=== PATIENT | female | born 1990 | race Caucasian/White ===

== ENCOUNTER 2018-08-25 18:45 | Inpatient (IN) | payer OTHER ==
[2018-08-25] MEDS ORDERED: OXYTOCIN 20 UNITS in 0.9% NS 20 UNIT/1,000 ML INFUS.BAG IV ONE (19:08)
[2018-08-25] MEDS ORDERED: BENZOCAINE 20% 57 GM BOTTLE TP PRN (19:32)
[2018-08-25] MEDS ORDERED: BISACODYL 10 MG SUPP.RECT RC PRN (19:32)
[2018-08-25] MEDS ORDERED: METHYLERGONOVINE MALEATE 0.2 MG/1 ML AMP IM PRN (19:32)
[2018-08-25] MEDS ORDERED: BENZOCAINE 28 GM HEMORRHOIDAL OINTMENT TP PRN (19:32)
[2018-08-25] MEDS ORDERED: WITCH HAZEL 50% (TUCKS) 40 PAD/JAR PAD TP PRN (19:32)
[2018-08-25 19:35] LABS: BASO % 0.2 % (0-2.0); EOS % 1.2 % (0-4.5); HEMOGLOBIN 12.6 GM/dL (10.7-15.3); LYMPH % 29.9 % (8-40); MCHC 35.1 g/dl (32.0-36.0); MEAN CELL VOLUME 88.4 fl (80-96); MONO % 6.7 % (3.8-10.2); PLATELET COUNT 164 K/MM3 (134-434); RBC 4.07 M/mm3 (3.60-5.2); RDW 14.5 % (11.6-15.6); WHITE BLOOD COUNT 9.5 K/mm3 (4.0-10.0)
[2018-08-25 19:40] LABS: ARTERIAL BLD GAS O2 SATURATION 40.6 % (90-98.9); ARTERIAL BLOOD GAS BASE EXCESS -1.1 meq/l (-2-2); ARTERIAL BLOOD GAS PCO2 57.1 mmHg (35-45); ARTERIAL BLOOD GAS PO2 22.7 mmHg (80-100); ARTERIAL BLOOD GAS pH 7.29 (7.35-7.45)
--- NOTE | 2018-08-25 19:44 | HP ---
Past Medical History - Primary Care Physician PCP:: Paola De La Rosa - Admission Chief Complaint: 28 yrs , 38.1 weeks arrived in active labor. onset LP since 6.00 PM. SROM since 5.00 PM History of Present Illness: care at [address] Wt gain 22 lbs panel 02/12/18 O Pos, rubella immune , hbsag neg, rpr nr, cf screen neg ,Pap Nilm, hpv , gc/ct neg 12/08/17 ora quick neg . 05/19/18 1 hr Gtt 130 , rpr nr, quantiferon neg 08/13/18 : gc/ct neg, GBS neg, Hiv , h/h 12.2/38.3 , Plt 168 . serial sono done by [facility] for growth . NT screen neg , AFP screen neg 03/02/18-13 wks corrected EDC 09/07/18 last sono 37.2 weeks, felipa 10.5, vx, post placenta , efw 6'3" h/o uti in early treated with po keflex History Source: Patient, Medical Record Limitations to Obtaining History: No Limitations - Past Medical History MEDICAL DOCTOR: No: Migraine, Seizure Cardiovascular: No: HTN, Murmur Pulmonary: No: Asthma Gastrointestinal: Yes: Hemorrhoids Hepatobiliary: No: Hepatitis B Renal/: Yes: UTI (rx po kef;ex during ) ...: 5 ...Para: 3 (05/12/04 7'5"in 40 wks ., 11/03/07 -7'5"40 wks in , G4 7'8" 40 wks sj ) ...Spon : 1 (2001) ...LMP: 11/07/17 ... 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 No: AIDS , HIV, Tuberculosis Psych: No: Addictions, Anxiety, Bipolar, Depression, Panic, Psychosis, Schizophrenia, Other Endocrine: No: Diabetes Insipidus, Diabetes Mellitus - Past Surgical History Past Surgical History: Yes: None Hx Myomectomy: No Hx Transabdominal Cerclage: No - Smoking History Smoking history: Never smoked Have you smoked in the past 12 months: No Aproximately how many cigarettes per day: 0 - Alcohol/Substance Use Hx Alcohol Use: No History of Substance Use: reports: None - Social History History of Recent Travel: No Home Medications - Allergies Allergies/Adverse Reactions: Allergies Allergy/AdvReac Type Severity Reaction Status Date / Time No Known Allergies Allergy Verified 08/25/18 20:20 - Home Medications Home Medications: Ambulatory Orders Vitamins (Sjr) - 1 tab PO DAILY 02/08/14 Valacyclovir HCl [Valtrex -] 500 mg PO BID 02/08/14 Acetaminophen [Tylenol .Regular Strength -] 650 mg PO Q3H PRN #20 tablet Ibuprofen [Motrin -] 200 mg PO QID PRN #20 tablet 02/10/14 Physical Exam - Maternity Vital Signs: Selected Entries 08/25/18 18:45 Temperature 98.7 F Pulse Rate 90 Respiratory 18 Rate Blood Pressure 120/70 Weight 163 lb Constitutional: Yes: Well Nourished Eyes: Yes: WNL HENT: Yes: WNL, Normocephalic Neck: Yes: WNL Cardiovascular: Yes: WNL, Regular Rate and Rhythm Lungs: Clear to auscultation Breast(s): Yes: WNL - Abdominal Exam/OB Fundal Height: 38 Number of Fetuses: Single Presentation: Vertex Contractions: Yes Regularity: Regular (1-2-3 min) Intensity: Strong Monitor Mode: External Heart Rate (range): 130-150 Heart Rate Location: Midline Category: I Accelerations: Uniform Decelerations: None - Vaginal Exam/OB Vaginal Bleediing: Light Speculum Exam: No Dilatation (cm): 6 Effacement (%): 100 Amniotic Membrane Status: Ruptured (nitrazine pos , gross leaking ,) Amniotic Fluid: Yes: Blood Stained Presentation: Vertex/Position (exam at 7.05 PM) Station: 0 - Physical Exam Musculoskeletal: Yes: WNL Extremities: Yes: WNL. No: Calf Tenderness Edema: Yes Edema: LLE: 1+, RLE: 1+ Integumentary: Yes: WNL, Tattoos Deep Tendon Reflex Grade: Normal +2 ...Motor Strength: WNL Psychiatric: Yes: WNL, Alert, Oriented - Labs Lab Results: Laboratory Tests 02/08/14 08/25/18 08/25/18 21:15 19:00 19:00 WBC 7.8 9.5 Hgb 11.6 12.6 Hct 35.3 36.0 Plt Count 159 164 Sodium 137 Potassium 3.6 Chloride 104 Carbon Dioxide 24 BUN 6 L Creatinine 0.7 Random Glucose 129 H Calcium 8.8 Laboratory Tests 08/25/18 08/25/18 08/25/18 19:00 19:00 19:00 PT with INR 12.60 INR 1.07 PTT (Actin FS) 24.7 L RPR Titer Nonreactive Blood Type O POSITIVE Antibody Screen Negative Problem List - Problems (1) with 38 completed weeks gestation Code(s): Z3A.38 - 38 WEEKS GESTATION OF (2) Labor established Code(s): JKZ4480 - (3) Spontaneous rupture of amniotic membranes Code(s): UHM0275 - Assessment/Plan , 28 yrs old, gbs neg admitted in active labor plan : delivery normal to be conducted
[2018-08-25] MEDS ORDERED: DEXTROSE 5%-LACTATED RINGERS 1,000 ML IV SCH (19:45)
[2018-08-25] MEDS ORDERED: OXYTOCIN 20 UNITS in 0.9% NS 20 UNIT/1,000 ML INFUS.BAG IV SCH (19:45)
[2018-08-25 19:47] LABS: VENOUS PC02 46.1 mmHg (38-52); VENOUS PH 7.36 (7.32-7.42)
[2018-08-25 19:48] LABS: VENOUS PO2 32.9 mmHg (28-48)
[2018-08-25 20:08] LABS: ANION GAP 10 MMOL/L (8-16); BLOOD UREA NITROGEN 6 mg/dL (7-18); CALCIUM 8.8 mg/dL (8.5-10.1); CHLORIDE 104 mmol/L (98-107); CO2 24 mmol/L (21-32); CREATININE 0.7 mg/dL (0.55-1.3); GLUCOSE,RANDOM 129 mg/dL (74-106); POTASSIUM 3.6 mmol/L (3.5-5.1); SODIUM 137 mmol/L (136-145)
[2018-08-25 20:12] VITALS: BMI 29.8
--- NOTE | 2018-08-25 20:14 | PN ---
Delivery - Delivery Vaginal Delivery: No Problems, Spontaneous (baby delievered vx presentation , Tomas position , cord around neck x1 tight untangled before delivery of anterior shoulder . shoulder & body delievered without difficulty . placenta delivered completely with membranes . perineum & vagina is intact) Delivery, Single - Stages of Labor Date 1st Stage Initiatied: 08/25/18 Time 1st Stage Initiated: 18:00 Date 2nd Stage Initiated: 08/25/18 Time 2nd Stage Initiated: 19:10 Date of Delivery: 08/25/18 Time of Delivery: 19:14 Date Placenta Delivered: 08/25/18 Time Placenta Delivered: 19:17 Placenta: Yes: Spontaneous, Uterine Exploration - Condition of Infant Infant Gender: Female Weight: 7 lb 1 oz Position: Left, OA Total Hours ROM (Hrs/Mins): 2hrs 17 min - 1 Minute Total Score: 9 5 Minutes Total Score: 9 Remarks - Remarks Remarks: 28 yrs , 38.1 weeks by sono, GBS neg, admitted in active labor pnc at [address] [place] [address] Intrapartum course uneventful.
[2018-08-25 20:25] LABS: INR 1.07 (0.83-1.09); PROTHROMBIN TIME (PATIENT) 12.6 SEC (9.7-13.0)
[2018-08-25 20:27] LABS: ACTIVATED PTT 24.7 SECONDS (25.2-36.5)
[2018-08-25] MEDS ORDERED: ACETAMINOPHEN 325 MG TABLET (FP) ONE (20:55)
[2018-08-25] MEDS ORDERED: IBUPROFEN 600 MG TABLET (FP) PO ONE (20:55)
[2018-08-25] MEDS: IBUPROFEN 600 MG TABLET (FP) PO PRN (20:59)
[2018-08-25] MEDS: ACETAMINOPHEN 325 MG TABLET (FP) PO PRN ×2 (21:00→23:52)
[2018-08-25] MEDS: oxyCODONE HCL 5 MG TABLET PO PRN (23:55)
[2018-08-26] MEDS: IBUPROFEN 600 MG TABLET (FP) PO PRN ×3 (05:58→23:40)
[2018-08-26] MEDS: ACETAMINOPHEN 325 MG TABLET (FP) PO PRN ×3 (05:59→23:40)
[2018-08-26 07:36] LABS: BASO % 0.5 % (0-2.0); EOS % 1.6 % (0-4.5); HEMATOCRIT 34.9 % (32.4-45.2); HEMOGLOBIN 11.6 GM/dL (10.7-15.3); MCH 29.9 pg (25.7-33.7); MCHC 33.3 g/dl (32.0-36.0); MEAN PLT VOLUME 9.6 fl (7.5-11.1); MONO % 4.9 % (3.8-10.2); PLATELET COUNT 140 K/MM3 (134-434); RBC 3.88 M/mm3 (3.60-5.2); RDW 14.5 % (11.6-15.6); WHITE BLOOD COUNT 10.4 K/mm3 (4.0-10.0)
[2018-08-26] MEDS: oxyCODONE HCL 5 MG TABLET PO PRN ×2 (08:49→17:38)
[2018-08-26] MEDS: FERROUS SO4 325 MG TABLET (FP) PO SCH ×2 (08:50→17:39)
[2018-08-26] MEDS: PRENATAL VITAMINS W/ FOLIC ACID TABLET (FP) PO SCH (09:27)
--- NOTE | 2018-08-26 09:47 | PN ---
Post Progress Note - Subjective Subjective: c/o cramps Post Day: 1 Type of Delivery: Vital Signs: Vital Signs Temperature 97.9 F 08/26/18 08:12 Pulse Rate 63 08/26/18 08:12 Respiratory Rate 18 08/26/18 08:12 Blood Pressure 124/75 08/26/18 08:12 O2 Sat by Pulse Oximetry (%) 96 08/25/18 20:15 Breast Exam: Yes: Soft, Other (BF ). No: Engorged Uterus: Yes: Fundus Firm, Fundus below umbilicus, Non-tender Lochia: Yes: Rubra Lochia, amount: Moderate Extremities: Yes: Calves non-tender Perineum: Yes: Intact Activity: Ambulating - Labs Labs: CBC WBC 10.4 K/mm3 (4.0-10.0) H 08/26/18 06:30 RBC 3.88 M/mm3 (3.60-5.2) 08/26/18 06:30 Hgb 11.6 GM/dL (10.7-15.3) 08/26/18 06:30 Hct 34.9 % (32.4-45.2) 08/26/18 06:30 MCV 90.0 fl (80-96) 08/26/18 06:30 MCH 29.9 pg (25.7-33.7) 08/26/18 06:30 MCHC 33.3 g/dl (32.0-36.0) 08/26/18 06:30 RDW 14.5 % (11.6-15.6) 08/26/18 06:30 Plt Count 140 K/MM3 (134-434) 08/26/18 06:30 MPV 9.6 fl (7.5-11.1) 08/26/18 06:30 Absolute Neuts (auto) 7.4 K/mm3 (1.5-8.0) 08/26/18 06:30 Neutrophils % 71.0 % (42.8-82.8) 08/26/18 06:30 Lymphocytes % 22.0 % (8-40) D 08/26/18 06:30 Monocytes % 4.9 % (3.8-10.2) 08/26/18 06:30 Eosinophils % 1.6 % (0-4.5) 08/26/18 06:30 Basophils % 0.5 % (0-2.0) 08/26/18 06:30 Nucleated RBC % 0 % (0-0) 08/26/18 06:30 Problem List - Problems (1) with 38 completed weeks gestation Code(s): Z3A.38 - 38 WEEKS GESTATION OF (2) Labor established Code(s): EOO4529 - (3) Spontaneous rupture of amniotic membranes Code(s): MDG3652 - (4) Vaginal delivery Code(s): O80 - ENCOUNTER FOR FULL-TERM UNCOMPLICATED DELIVERY (5) Encounter for assessment Code(s): Z39.2 - ENCOUNTER FOR ROUTINE FOLLOW-UP Assessment/Plan stable. plan : ct pp care discharge tomorrow.
[2018-08-26] MEDS ORDERED: SENNOSIDES/DOCUSATE COMBO (SENNA PLUS) TABLET (UD) PO PRN (22:00)
[2018-08-27] MEDS: IBUPROFEN 600 MG TABLET (FP) PO PRN ×2 (07:53→12:45)
[2018-08-27] MEDS: FERROUS SO4 325 MG TABLET (FP) PO SCH (07:53)
[2018-08-27] MEDS: ACETAMINOPHEN 325 MG TABLET (FP) PO PRN ×2 (07:54→12:44)
--- NOTE | 2018-08-27 09:09 | DS ---
Physical Examination Vital Signs: Vital Signs Temperature 98.0 F 08/26/18 20:54 Pulse Rate 68 08/26/18 20:54 Respiratory Rate 20 08/26/18 20:54 Blood Pressure 129/73 08/26/18 20:54 O2 Sat by Pulse Oximetry (%) 96 08/25/18 20:15 Constitutional: Yes: Well Nourished, No Distress, Calm Eyes: Yes: WNL, Conjunctiva Clear, EOM Intact HENT: Yes: WNL, Atraumatic, Normocephalic Neck: Yes: WNL, Supple, Trachea Midline Cardiovascular: Yes: WNL, Regular Rate and Rhythm Respiratory: Yes: WNL, Regular, CTA Bilaterally Gastrointestinal: Yes: WNL, Normal Bowel Sounds Musculoskeletal: Yes: WNL Extremities: Yes: WNL Edema: No Integumentary: Yes: WNL Neurological: Yes: WNL, Alert, Oriented ...Motor Strength: WNL Psychiatric: Yes: WNL Labs: CBC, BMP 08/26/18 06:30 08/25/18 19:00 Discharge Summary Reason For Visit: ADMIT LABOR Current Active Problems Encounter for assessment (Acute) Labor established (Acute) with 38 completed weeks gestation (Acute) Spontaneous rupture of amniotic membranes (Acute) Vaginal delivery (Acute) Procedures: Principal: Hospital Course: 28yo presented in active labor Had an uncomplicated Met all milestones and was discharged home on PPD#2 Condition: Stable - Instructions Diet, Activity, Other Instructions: Post Instructions DIET: Continue good diet high in protein, calcium, and iron rich foods. Drink at least eight (8) glasses of water daily in addition to other fluids. ___ Regular diet MEDICATIONS: Continue vitamins and iron as previously directed. Motrin and Tylenol may be taken for minor discomfort. ACTIVITY: Mild to moderate exercise may be started in two (2) weeks. Take frequent rest periods. Resume normal activity after six (6) week check up. WOUND CARE OF OPERATIVE SITE: Continue use of perineal bottle until vaginal discharge stops. Keep area clean. Shower daily. Keep abdominal wound dry. Report any drainage or redness to physician. Tub baths, tampons and douches are not permitted for [address] Breast feeding & or Bottle feeding BREAST CARE: (For those that are not ): If engorgement occurs: Wear tight fitting bra. Take Tylenol or Motrin for pain. Apply cold packs (ice in bags to each breast ) FAMILY PLANNING: There are many control alternatives to pursue and they should be discussed at your first office visit. You may resume sexual activity after your six (6) week check up. (Remember, is not a contraceptive) NEXT PHYSICIAN APPOINTMENT: Be certain to call for a six (6) week appointment, unless otherwise directed. Call Clinic or got to Emergency Dept if you have any of the following: Heavy vaginal bleeding Painful urination Leg pain Unusual odor noted to vaginal bleeding High fever Red streaking noted on breast Referrals: Paola De La Rosa MD [Staff Physician] - Disposition: HOME - Home Medications Comprehensive Discharge Medication List: Ambulatory Orders Vitamins (Sjr) - 1 tab PO DAILY 02/08/14 Acetaminophen [Tylenol .Regular Strength -] 650 mg PO Q3H PRN #20 tablet Ibuprofen [Motrin -] 200 mg PO QID PRN #20 tablet 02/10/14 Acetaminophen [Tylenol .Regular Strength -] 650 mg PO Q3H PRN tablet 08/27/18 Ferrous Sulfate [Feosol] 325 mg PO BIDWM tab 08/27/18 Ibuprofen [Motrin -] 200 mg PO Q4H PRN tablet 08/27/18 Vitamins (Sjr) - 1 tab PO DAILY #30 tablet 08/27/18
[2018-08-27] MEDS: PRENATAL VITAMINS W/ FOLIC ACID TABLET (FP) PO SCH (09:50)
[2018-08-27 16:54] VITALS: BP 130/83; PULSE 72; TEMP 97.6
== END 2018-08-27 14:45 | disposition home or self-care (01) | DRG 560 ==
LOC: JLDR 18:45 → J3W 21:40
PROVIDERS: ADMIT Obstetrics & Gynecology; ATTEND Obstetrics & Gynecology
PROC: 10E0XZZ Delivery of Products of Conception, External Approach (ICD-10-PCS; principal; 2018-08-25)
DX: O80 Encounter for full-term uncomplicated delivery (principal); Z3A.38 38 weeks gestation of pregnancy; Z37.0 Single live birth
CPT/HCPCS: 36415; 36600; 59409; 80048; 82803; 85025; 85610; 85730; 86593; 86850; 86900; 86901

== ENCOUNTER 2021-08-22 04:20 | Day surgery (SDC) | payer OTHER ==
[2021-08-21 15:35] VITALS: BMI 28.1
[2021-08-22] MEDS ORDERED: PROPOFOL 20 ML ONE ×3 (12:15→13:42)
[2021-08-22] MEDS ORDERED: SUCCINYLCHOLINE CHLORIDE 200 MG/10 ML SYRINGE ONE (12:16)
[2021-08-22] MEDS ORDERED: ROCURONIUM BROMIDE 50 MG/5 ML SYRINGE ONE (12:16)
[2021-08-22] MEDS ORDERED: MIDAZOLAM HCL 2 MG/2 ML SINGLE DOSE VIAL ONE (13:02)
[2021-08-22] MEDS ORDERED: BUPIVACAINE HCL/PF 0.5% (5MG/ML) 10 ML VIAL IJ ONE ×2 (13:23)
[2021-08-22] MEDS ORDERED: BUPIVACAINE HCL/PF 0.25% (2.5MG/ML) 10 ML VIAL IJ ONE (13:23)
[2021-08-22] MEDS ORDERED: NEOSTIGMINE METHYLSULFATE 0.5 MG/ML - 10 ML MDV ONE (13:34)
[2021-08-22] MEDS ORDERED: ONDANSETRON 4 MG/2 ML VIAL IVPUSH PRN (13:59)
[2021-08-22] MEDS ORDERED: PROMETHAZINE HCL 25 MG/1 ML VIAL IVPUSH PRN (13:59)
[2021-08-22] MEDS ORDERED: oxyCODONE HCL 5 MG TABLET PO PRN (13:59)
[2021-08-22] MEDS ORDERED: ACETAMINOPHEN 1000 MG/100 ML BAG IVPB ONE (14:00)
[2021-08-22] MEDS ORDERED: LACTATED RINGERS SOLUTION 1,000 ML IV SCH (14:00)
[2021-08-22 16:24] VITALS: BP 110/68; PULSE 66; TEMP 97.2
== END 2021-08-22 16:20 | disposition home or self-care (01) ==
LOC: JASU-SURG 04:20
PROVIDERS: ATTEND Obstetrics & Gynecology
PROC: 0XP70YZ Removal of Other Device from Left Upper Extremity, Open Approach (ICD-10-PCS; 2021-08-22)
PROC: 0UT74ZZ Resection of Bilateral Fallopian Tubes, Percutaneous Endoscopic Approach (ICD-10-PCS; principal; 2021-08-22 13:00)
DX: Z30.2 Encounter for sterilization (principal); Z45.89 Encounter for adjustment and management of other implanted devices
CPT/HCPCS: 81025; 88300-TC; 88302-TC; 94760; J0131